=== PATIENT | female | born 1945 | race Caucasian/White ===

== ENCOUNTER 2018-04-20 22:05 | Inpatient (IN) | payer OTHER ==
[~2018-04-20] VITALS: Ht 165.1 cm; Wt 75.3 kg
[~2018-04-20 22:05] MED LIST: ALLOPURINOL 30300 M2 PO; OMEPRAZOLE20 M2 PO; OXYCODONE HCL 55 MG PO; PERCOCET PO; ROBAXIN 750 MG750 M1 PO
[2018-04-20 22:15] VITALS: BP 152/76
[2018-04-20] MEDS ORDERED: MACROBID 100 M100 M2 PO (22:21)
[2018-04-20] MEDS ORDERED: HYDROCODON-ACE1 EAC5 PO (22:22)
[2018-04-20 22:40] LABS: URINE BILIRUBIN NEGATIVE (Negative); URINE BLOOD NEGATIVE (Negative); URINE CLARITY SL CLOUDY; URINE COLOR DARK YELLOW; URINE GLUCOSE-RANDOM TRACE (Negative); URINE KETONES TRACE (Negative); URINE NITRITE-REFLEX NEGATIVE (Negative); URINE PROTEIN NEGATIVE (Negative); URINE SPECIFIC GRAVITY >= 1.030 (1.005-1.030)
[2018-04-20 22:46] LABS: URINE LEUKOCYTES-REFLEX 2+ (Negative)
[2018-04-20 22:47] LABS: ABSOLUTE EOSINOPHILS 0.2 thou/uL (0.0-0.7); ABSOLUTE LYMPHOCYTES 2.1 thou/uL (0.8-5.3); ABSOLUTE MONOCYTES 0.5 thou/uL (0.0-1.2); ABSOLUTE NEUTROPHILS 3.7 thou/uL (1.6-8.1); BASOPHILS 0.3 %; EOSINOPHILS 3.1 %; HEMATOCRIT 36.2 % (37.0-47.0); HEMOGLOBIN 12.1 gm/dL (12.0-15.0); LYMPHOCYTES 32.7 %; MCH 32.2 pg (26.0-34.0); MCHC 33.4 g/dL (28.0-37.0); MCV 96.3 fL (80.0-100.0); MONOCYTES 7.2 %; NUCLEATED RBCS 0 /100WBC; PLATELET COUNT* 185 thou/uL (150-400); POLYS 56.7 %; RBC 3.76 mil/uL (4.20-5.00); RDW-CV 13.8 % (10.5-14.5); WBC 6.4 thou/uL (4.0-11.0)
[2018-04-20 22:51] LABS: MUCUS 0-3 Light strn/LPF (None Seen); SQUAMOUS >10 Many /LPF (0-3)
[2018-04-20 22:52] LABS: CASTS None Seen /LPF (None Seen); URINE WBC-REFLEX >25 Many /HPF (0-5)
[2018-04-20 22:53] LABS: CRYSTALS None Seen /LPF (None Seen); URINE RBC None Seen /HPF (0-2)
[2018-04-20 22:54] LABS: WBC CLUMPS Few (None Seen)
[2018-04-20 23:08] LABS: ALBUMIN 3.9 g/dL (3.4-5.0); ALKALINE PHOSPHATASE 70 U/L (46-116); ANION GAP 7 mmol/L (7-16); BUN 13 mg/dL (7-18); CALCIUM 8.7 mg/dL (8.5-10.1); CHLORIDE 103 mmol/L (98-107); CO2 30 mmol/L (21-32); CREATININE 0.8 mg/dL (0.6-1.3); GLUCOSE 89 mg/dL (70-99); LIPASE 208 U/L (73-393); NT-PRO BRAIN NAT PEPTIDE 241 pg/mL (<300); POTASSIUM 3.5 mmol/L (3.5-5.1); SGOT 37 U/L (15-37); SGPT 31 U/L (30-65); SODIUM 140 mmol/L (136-145); TOTAL BILIRUBIN 0.5 mg/dL (<0.1-1.0); TOTAL PROTEIN 6.6 g/dL (6.4-8.2); TROPONIN-I LEVEL <0.06 ng/mL (<0.06)
[2018-04-21] VITALS (7 sets, daily range): BP systolic 105–137; BP diastolic 45–78
[2018-04-21] MEDS ORDERED: CEFUROXIME250 MG PO (13:37)
--- NOTE | 2018-04-21 13:46 | EKG ---
[place] [address] ELECTROCARDIOGRAM REPORT Name: KHADAR CARR Room: [address] ADM IN .R.#: [id number] Admission: 04/20/18 Attend Phys: Paolo Chung Discharge: Date of : 49 Report #: [id number] THIS REPORT FOR: //name// [facility] ED Test Date: 2018-04-20 Test Time: 22:13:09 Pat Name: KHADAR CARR Department: Room: [facility] Gender: F French Instructor: DEMETRI : 1945 Requested By: Melissa Garcia Order Number: [id number] MD: Kiran Menjivar Measurements Intervals [place] Rate: 54 P: 54 NM: 126 QRS: 48 QRSD: 83 T: 45 QT: 430 QTc: 408 Interpretive Statements Sinus rhythm Probable left atrial enlargement No previous ECG available for comparison Electronically Signed On 04-21-2018 13:45:57 [employer] by Kiran Menjivar [email or web address] <ELECTRONICALLY SIGNED> By: Kiran Menjivar MD, [facility] 04/21/18 1345 12 12 Kiran Menjivar MD, FAC /EPI
--- NOTE | 2018-04-21 13:57 | 2DMMODE ---
[place] [address] 2 D/M-MODE ECHOCARDIOGRAM Name: KHADAR CARR Room: [address] IN [facility]#: [id number] Admission: 04/20/18 Attend Phys: Rodriguez Harding Discharge: Date of : 49 Date of Service: 04/21/18 1357 Report #: [id number] THIS REPORT FOR: //name// APPROVED REPORT Study performed: 04/21/2018 11:17:52 EXAM: Comprehensive 2D, Doppler, and color-flow Echocardiogram Patient Location: In-Patient Room #: [facility] Status: routine BSA: 1.83 HR: 63 bpm BP: 128/54 mmHg Rhythm: NSR Other Information Study Quality: Good Indications Chest Pain 2D Dimensions IVSd: 8.86 (7-11mm) LVOT Diam: 19.84 (18-24mm) LVDd: 49.14 mm PWd: 8.31 (7-11mm) Ascending Ao: 30.93 (22-36mm) LVDs: 37.58 (25-40mm) Aortic Root: 29.56 mm Volumes Left Atrial Volume (Systole) LA ESV Index: 29.40 mL/m2 Aortic Valve AoV Peak Hakeem.: 1.17 m/s AO Peak Gr.: 5.51 mmHg LVOT Max P.99 mmHg AO Mean Gr.: 3.00 mmHg LVOT Mean P.35 mmHg LVOT Max V: 0.86 m/s AO V2 VTI: 28.58 cm LVOT Mean V: 0.53 m/s EVELINE (VTI): 2.34 cm2 LVOT V1 VTI: 21.64 cm AI Jack: 2.57 m/s2 AI PHT: 482.00 ms Mitral Valve E/A Ratio: 1.16 [place] [address] 2 D/M-MODE ECHOCARDIOGRAM Name: KHADAR CARR Room: [address] IN .R.#: [id number] Admission: 04/20/18 Attend Phys: Rodriguez Harding Discharge: Date of : 49 Date of Service: 04/21/18 1357 Report #: [id number] MV Decel. Time: 171.97 ms MV E Max Hakeem.: 0.75 m/s MV PHT: 49.87 ms MVA (PHT): 4.41 cm2 TDI E/Lateral E': 5.77 E/Medial E': 6.25 Medial E' Hakeem.: 0.12 m/s Lateral E' Hakeem.: 0.13 m/s Pulmonary Valve PV Peak Hakeem.: 0.76 m/s PV Peak Gr.: 2.33 mmHg Tricuspid Valve RAP Estimate: 5.00 mmHg TR Peak Gr.: 22.33 mmHg RVSP: 27.00 mmHg PA Pressure: 27.00 mmHg Left Ventricle The left ventricle is normal size. There is normal LV segmental wall motion. Borderline concentric left ventricular hypertrophy. Left ventricular systolic function is normal. The left ventricular ejection fraction is within the normal range. A false tendon is noted (normal variant). No left ventricle thrombus noted on this study. LVEF is 50-55%. Grade II - pseudonormal filling dynamics. Right Ventricle The right ventricle is normal size. The right ventricular systolic function is normal. Atria Left atrium is borderline dilated. The right atrium size is normal. Aortic Valve Aortic valve is calcified. Mild aortic regurgitation. There is no aortic valvular stenosis. Mitral Valve The mitral valve is normal in structure. Mild mitral regurgitation. No evidence of mitral valve stenosis. Tricuspid Valve The tricuspid valve is normal in structure. Trace tricuspid regurgitation. [place] [address] 2 D/M-MODE ECHOCARDIOGRAM Name: KHADAR CARR Room: [address] IN [facility]#: [id number] Admission: 04/20/18 Attend Phys: Rodriguez Harding Discharge: Date of : 49 Date of Service: 04/21/18 1357 Report #: [id number] Pulmonic Valve The pulmonary valve is normal in structure. There is no pulmonic valvular regurgitation. Great Vessels The aortic root is normal in size. IVC is normal in size and collapses >50% with inspiration. Pericardium There is no pericardial effusion. <Conclusion> LVEF is 50-55%. Borderline concentric left ventricular hypertrophy. There is normal LV segmental wall motion. Left atrium is borderline dilated. Aortic valve is calcified. There is no aortic valvular stenosis. Mild aortic regurgitation. Mild mitral regurgitation. Grade II - pseudonormal filling dynamics. <ELECTRONICALLY SIGNED> By: Kiran Menjivar MD, FACC 04/21/18 1357 1357 1357 Kiran Menjivar MD, FACC /INF
--- NOTE | 2018-04-21 14:32 | CARDNUC ---
[place] [address] CARDIAC NUCLEAR IMAGING REPORT Name: KHADAR CARR Room: [address] IN [facility]#: [id number] Admission: 04/20/18 Attend Phys: Rodriguez Harding Discharge: Date of : 49 Date of Service: 04/21/18 1431 Report #: [id number] THIS REPORT FOR: //name// APPROVED REPORT Imaging Protocol: Rest Tc-99m/Stress Tc-99m 1 day Study performed: 04/21/2018 09:12:00 Indication: Chest pain Patient Location: In-Patient Room #: 224 Stress Tech: Maria Dolores Francis Stress Nurse: Alexia Lau RN Ht: 5 ft 5 in Wt: 166 lbs BSA: 1.83 m2 BMI: 27.62 Medical History Medical History: none Medications: none Allergies: sulfa Cardiac Risk Factors: age Previous Cardiac Procedures: none Exercise History: Physically active Meds Held (24 hrs): none Resting Data Rest SPECT myocardial perfusion imaging was performed in supine position 30 minutes following the intravenous injection of 11.1 mCi of Tc-99m Sestamibi. Time of rest injection: 09:20 The images were gated to evaluate regional wall motion and calculate left ventricular ejection fraction. Administration Route: IV Administration Site: Right AC Pharmacologic Stress Pharmacologic stress test was performed by injecting Regadenoson 0.4 mg IV push over 10-15 seconds immediately followed by the intravenous injection of 34.6 mCi of Tc-99m Sestamibi. Time of stress injection: 10:30 Administration Route: IV Administration Site: Right AC Heart Rate at time of stress injection: 85 bpm. Gated Stress SPECT was performed 40 [place] [address] CARDIAC NUCLEAR IMAGING REPORT Name: KHADAR CARR Room: [address]#: [id number] Admission: 04/20/18 Attend Phys: Rodriguez Harding Discharge: Date of : 49 Date of Service: 04/21/18 1431 Report #: [id number] injection. The images were gated to evaluate regional wall motion and calculate left ventricular ejection fraction. Prone imaging was performed. Stress Test Details Stress Test: Pharmacologic stress testing performed using 0.4 mg of regadenoson per 5 mL given IV over 10 seconds. Reason for pharmacologic stress test: . HR Max Heart Rate (APMHR): 150 bpm Resting HR: 58 bpm Target HR (85% APMHR): 127 bpm Max HR Achieved: 85 bpm % of APMHR: 56 Recovery HR: 64 bpm HR response to stress: Normal HR response to stress BP Resting BP: 132/67 mmHg Max BP: 145/70 mmHg Recovery BP: 144/69 mmHg BP response to stress: Normal blood pressure response to stress. ECG Resting ECG: Sinus Rhythm Stress ECG: Sinus Rhythm ST Change: None Recovery ECG: Sinus Rhythm Recovery ST Change: None Clinical Reason for Termination: Completed protocol Stress Symptoms: None Exercise duration: 0 min sec Exercise capacity: 1 METs Nurse Comments unsteady gait Stress ECG Conclusion negative ecg Study Quality Study: Good Artifact: No artifact Lung Uptake: [place] [address] CARDIAC NUCLEAR IMAGING REPORT Name: KHADAR CARR Room: [address]#: [id number] Admission: 04/20/18 Attend Phys: Rodriguez Harding Discharge: Date of : 49 Date of Service: 04/21/18 1431 Report #: [id number] Study Data At rest, the left ventricular ejection fraction was 52%.. Post stress, the left ventricular ejection was 63%.. SSS: 4 SRS: 4 SDS: 0 Perfusion Review of rest data reveals normal perfusion, without perfusion defects.Imaging obtained following vasodilator stress demonstrate a similar, uniform uptake of tracer without defects. Prone imaging was normal. LVEDV is normal.No segental wall motion abnormality seen. Wall Motion normal all segments Nuclear Conclusion ECG Findings: negative for ischemia Clinical Findings: negative for ischemia Nuclear Findings: negative for ischemia Exercise Capacity: not assessed Left Ventricular Function: normal Risk Study: low Negative stress test for ischemia or infarct. Normal LV function. <Conclusion> negative ecg <ELECTRONICALLY SIGNED> By: Kiran Menjivar MD, FACC 04/21/18 143 143 30 Kiran Menjivar MD, FACC /INF
[2018-04-21] MEDS ORDERED: LEXAPRO20 MG PO (21:03)
[2018-04-22 04:00] VITALS: BP 119/53
[2018-04-22 08:35] VITALS: BP 147/66
[2018-04-22 11:30] VITALS: BP 147/66
[2018-04-22 12:35] VITALS: BP 148/70
== END 2018-04-22 12:57 | disposition home or self-care (01) | DRG 392 ==
LOC: M.ERS 22:05 → M.2W 23:42 → M.TBA-ER 23:42 → M.2W 04-21 00:02
PROVIDERS: Emergency Medicine; ADMIT Internal Medicine
DX: K21.9 Gastro-esophageal reflux disease without esophagitis (principal); N39.0 Urinary tract infection, site not specified; R01.1 Cardiac murmur, unspecified; M10.9 Gout, unspecified; F32.9 Major depressive disorder, single episode, unspecified; Z88.2 Allergy status to sulfonamides; Z90.710 Acquired absence of both cervix and uterus; Z95.828 Presence of other vascular implants and grafts; Z79.899 Other long term (current) drug therapy

== ENCOUNTER 2018-08-28 03:14 | Inpatient (IN) | payer OTHER ==
[~2018-08-28] VITALS: Ht 167.6 cm; Wt 68.5 kg
[~2018-08-28 03:14] MED LIST changes: +CEFUROXIME250 MG PO; +HYDROCODON-ACE1 EAC5 PO; +LEXAPRO20 MG PO; +MACROBID 100 M100 M2 PO
[2018-08-28 03:22] VITALS: BP 164/76
[2018-08-28] MEDS ORDERED: BUSPIRONE HCL10 MG PO (03:29)
[2018-08-28 03:42] LABS: ABSOLUTE EOSINOPHILS 0.3 thou/uL (0.0-0.7); ABSOLUTE LYMPHOCYTES 1.8 thou/uL (0.8-5.3); ABSOLUTE MONOCYTES 0.4 thou/uL (0.0-1.2); ABSOLUTE NEUTROPHILS 3.3 thou/uL (1.6-8.1); BASOPHILS 0.5 %; EOSINOPHILS 4.8 %; HEMATOCRIT 39.4 % (37.0-47.0); HEMOGLOBIN 12.8 gm/dL (12.0-15.0); LYMPHOCYTES 31.1 %; MCH 31.1 pg (26.0-34.0); MCHC 32.5 g/dL (28.0-37.0); MCV 95.8 fL (80.0-100.0); MONOCYTES 6.4 %; MPV 9.3 fl. (7.2-11.1); NUCLEATED RBCS 0 /100WBC; PLATELET COUNT* 222 thou/uL (150-400); POLYS 57.2 %; RBC 4.11 mil/uL (4.20-5.00); RDW-CV 14.1 % (10.5-14.5); WBC 5.7 thou/uL (4.0-11.0)
[2018-08-28 04:05] LABS: CALCIUM 9.3 mg/dL (8.5-10.1); CREATININE 0.7 mg/dL (0.6-1.3); POTASSIUM 3.8 mmol/L (3.5-5.1)
[2018-08-28 04:09] LABS: ALBUMIN 3.9 g/dL (3.4-5.0); TOTAL BILIRUBIN 0.5 mg/dL (<0.1-1.0); TOTAL PROTEIN 6.8 g/dL (6.4-8.2)
[2018-08-28 05:21] VITALS: BP 140/60
[2018-08-28 06:27] LABS: URINE BILIRUBIN NEGATIVE (Negative); URINE BLOOD 1+ (Negative); URINE CLARITY CLEAR; URINE COLOR YELLOW; URINE GLUCOSE-RANDOM NEGATIVE (Negative); URINE KETONES 1+ (Negative); URINE LEUKOCYTES-REFLEX NEGATIVE (Negative); URINE NITRITE-REFLEX NEGATIVE (Negative); URINE PROTEIN NEGATIVE (Negative); URINE UROBILINOGEN 0.2 E.U./dl (0.2-1.0)
[2018-08-28 06:38] LABS: BACTERIA-REFLEX 1-9 Few /HPF (None Seen); CASTS None Seen /LPF (None Seen); CRYSTALS None Seen /LPF (None Seen); SQUAMOUS 0-3 Few /LPF (0-3); URINE RBC 3-10 Few /HPF (0-2); URINE WBC-REFLEX 0-5 Rare /HPF (0-5)
--- NOTE | 2018-08-28 07:41 | NUR ---
PT RECIEVED FROM ED. ALERT AND ORIENTED X4. SAT MAINTAINED IN RA. CALL LIGHT WITHIN REACH AND BED IN LOW POSITION. HOURLY ROUNDING DONE FOR PT SAFETY.
[2018-08-28 08:02] VITALS: BP 123/59
[2018-08-28 12:09] VITALS: BP 128/54
--- NOTE | 2018-08-28 16:03 | NUR ---
ASSUMED CARE OF PT AROUND 0730 THIS AM. REFER TO ASSESSMENT. PT PROGRESSING TOWARDS GOALS THIS SHIFT. IVF INFUSING WITHOUT DIFFICULTY. ALL URINE STRAINED. SMALL STONES NOTED ON LAST VOID. NO ORDERS TO COLLECT OR SEND STONES TO LAB. ANTICIPATE PT TO HAVE KUB IN AM. NPO AFTER MIDNIGHT. PAIN MANAGED WITH PRN FENTANYL AND HYDROCODONE. PT TOLERATING REGULAR DIET THIS SHIFT. NO OTHER CONCERNS AT THIS TIME. CLWR. WCTM.
[2018-08-28 19:50] VITALS: BP 106/48
[2018-08-29 04:00] VITALS: BP 135/55
--- NOTE | 2018-08-29 05:14 | NUR ---
PT CARE ASSUMED AT 1930. SAT MAINTAINED IN RA. ALERT AND ORIENTED X4. CALL LIGHT WITHIN REACH AND BED IN LOW POSITION. C/O PAIN, MEDICATION GIVEN PER EMAR. HOURLY ROUNDING DONE FOR PT SAFETY.
[2018-08-29 05:47] LABS: CALCIUM 8.1 mg/dL (8.5-10.1); CREATININE 1.2 mg/dL (0.6-1.3); POTASSIUM 3.2 mmol/L (3.5-5.1)
[2018-08-29 06:10] LABS: CREATININE 1.2 mg/dL (0.6-1.3); MAGNESIUM 1.4 mg/dL (1.8-2.4); POTASSIUM 3.3 mmol/L (3.5-5.1)
[2018-08-29 08:00] VITALS: BP 151/73
--- NOTE | 2018-08-29 13:16 | NUR ---
Pt out of the room when CM went to assess, will f/u later
[2018-08-29 15:52] VITALS: BP 142/58
--- NOTE | 2018-08-29 18:06 | NUR ---
ASSUMED PT CARE AT 0730, AOX4, SBA, O2 SAT 90'S RA. PT MS. PT COMPLAINS OF CONSTANT FLANK PAIN. PT LUNGS SOUND CLEAR. ABDOMEN SOFT AND ROUND. PT FOR URINE STRAIN. PT HAD KUB XRAY. PT HAD CYSTOSCOPY, LEFT RETROGRADE PYELOGAM. PT HAS 2 IV, R AND L ARM. PT FOR ELECTROLYTE PROTOCOL. VSS, AM ASSESSMENT CHARTED. MEDS GIVEN PER MAR. HOURLY ROUNDING. CALL LIGHT WITHIN REACH. WILL CONTINUE TO MONITOR.
--- NOTE | 2018-08-29 19:04 | NUR ---
I HAVE REVIEWED AND AGREED WITH THE ASSESMENT AND NOTE OF NEMO Barnes RN ON 08/29/18
[2018-08-29 19:10] LABS: MAGNESIUM 1.6 mg/dL (1.8-2.4); POTASSIUM 3.7 mmol/L (3.5-5.1)
[2018-08-29 20:00] VITALS: BP 128/48
--- NOTE | 2018-08-29 21:23 | CON ---
[address] [address] CONSULTATION Name: KHADAR CARR Room: [address] IN .R.#: [id number] Admission: 08/28/18 Attend Phys: Amrita Camacho MD Discharge: Date of : 49 Report #: [id number] THIS REPORT FOR: //name// CC: Tika Camacho DATE OF SERVICE: 08/28/2018 REASON FOR CONSULTATION: Left flank pain and renal/ureteral calculi. CONSULTING PHYSICIAN: Dr. Camacho. HISTORY OF PRESENT ILLNESS: This is a 73-year-old female who denies prior stone history. She presented to the Emergency Department with severe left flank pain and nausea. Pain was unremitting. She was admitted to the hospital for pain control and further evaluation. Urology was consulted. She denies dysuria, hematuria, or difficulty voiding. Denies fever. Reports intermittent left-sided flank pain radiating to the left lower quadrant. PAST MEDICAL HISTORY: Significant for gout. PAST SURGICAL HISTORY: Significant for hysterectomy, cholecystectomy, wrist surgery, back surgery and gastric bypass. She also reports a history of recurrent UTIs. She sees a urologist regarding this, but is not sure who that is. FAMILY HISTORY: She does not know of any family history of renal stones or renal insufficiency. SOCIAL HISTORY: Denies use of tobacco. Drinks alcohol occasionally. MEDICATIONS: List is reviewed. She has been started on Rocephin empirically given her UTI history. She has also been started on Flomax for medical expulsive therapy. ALLERGIES: INCLUDE SULFA DRUGS. REVIEW OF SYSTEMS: As per the history of present illness. No headache, chest pain, shortness of breath, cough, palpitations or vomiting. PHYSICAL EXAMINATION: VITAL SIGNS: Temperature 36.7, pulse 70, respirations 16, blood pressure 128/54. GENERAL: This is a 73-year-old female in no acute distress. She is awake, alert and answers questions appropriately. HEENT: Normocephalic, atraumatic. Extra[place] [address] CONSULTATION Name: KHADAR CARR Room: [address] IN [facility]#: [id number] Admission: 08/28/18 Attend Phys: Amrita Camacho MD Discharge: Date of : 49 Report #: [id number] Oropharynx is clear. NECK: Supple. No JVD. LUNGS: Respiratory effort and excursion are normal. CARDIAC: Rhythm is regular. Radial pulses are palpable. ABDOMEN: Soft and nondistended. She has tenderness in the left lower quadrant and flank as well as the left costovertebral angle. No guarding or rebound. Spine and right costovertebral angle are nontender. EXTREMITIES: Warm. Moves all extremities well. No peripheral edema. LABORATORY DATA: Include hemoglobin 12.8, white count 5.7, platelet count 222,000. Sodium 148, potassium 3.8, chloride 108, CO2 30, BUN 11, creatinine 0.7, glucose 104. Urinalysis revealed 3-10 red cells and 0-5 white cells. I have ordered a urine culture. Noncontrast CT of the abdomen and pelvis revealed multiple left renal calculi as well as left proximal and distal ureteral stones. There may also be a stone passed into the bladder. IMPRESSION: Left renal proximal and distal ureteral stones, flank pain, history of gastric bypass and recurrent UTIs. Options for management were discussed with the patient at length including inpatient versus outpatient medical expulsive therapy, inpatient versus outpatient cystoscopy, left retrograde pyelogram, ureteroscopic stone manipulation and stent placement, outpatient ESWL. Risks and benefits of these approaches were discussed. We also discussed stone prevention measures, especially given her history of gastric bypass. She would like to try a conservative approach. She is on intravenous hydration and oral Flomax. Receiving IV Rocephin empirically as well. We will plan to check repeat lab as well as a KUB tomorrow. Strain all urine for stones and await results of urine culture. <ELECTRONICALLY SIGNED> By: Jake Simms MD 08/29/18 2123 1358 [id number] carlos Simms MD /nt
--- NOTE | 2018-08-29 21:33 | OP ---
[address] [address] OPERATIVE REPORT Name: KHADAR CARR Room: [address] IN .R.#: [id number] Admission: 08/28/18 Attend Phys: Amrita Camacho MD Discharge: Date of : 49 Report #: [id number] THIS REPORT FOR: //name// CC: iTka Camacho DATE OF SERVICE: 08/29/2018 PREOPERATIVE DIAGNOSES: Left ureteral and renal calculi, flank pain, urinary tract infections. POSTOPERATIVE DIAGNOSES: Left ureteral and renal calculi, flank pain, urinary tract infections. PROCEDURE: Cystoscopy, left retrograde pyelogram, left ureteral stent placement, ureteral stone manipulation. SURGEON: Jake Simms M.D. ANESTHESIA: General. ESTIMATED BLOOD LOSS: None. DRAINS: 6 x 26 left ureteral stent. SPECIMENS: Stones. Urine from left renal pelvis for culture and sensitivity. COMPLICATIONS: None. INDICATIONS: This is a 73-year-old female admitted with intractable left flank pain and imaging showing multiple left ureteral and renal calculi. She also has a history of recurrent UTIs and is on empiric IV antibiotics. Alternatives for management were discussed and recommended she undergo cystoscopy with left retrograde pyelogram, left ureteral stent placement with deferral of definitive management of her stone burden until she completes a course of antibiotics. Reasoning for this was explained. Risks of procedure were explained including, but not limited to, bleeding, infection, anesthesia, cardiopulmonary and vascular events, injuries to urethra, bladder, ureter, possible inability to bypass obstruction, need for further stone procedures, possible development of strictures, stent discomfort. We also discussed the need for timely followup regarding any stent left in place and the reasoning for that. She voices clear understanding and wants to proceed. DESCRIPTION OF PROCEDURE: The patient was on perioperative IV antibiotics. After induction of general anesthesia, she was positioned, prepped and draped in the lithotomy position. Timeout procedure was performed[place] [address] OPERATIVE REPORT Name: KHADAR CARR Room: [address] IN ..#: [id number] Admission: 08/28/18 Attend Phys: Amrita Camacho MD Discharge: Date of : 49 Report #: [id number] performed. The urethra and bladder were normal on systematic examination. There were no mucosal lesions. Ureteral orifices were orthotopic. A sensor wire was advanced per the left ureteral orifice. Using this, coag sealed passage of a 5-Chinese ureteral catheter was performed into the distal ureter. The wire was then advanced into the renal pelvis with fluoroscopic guidance, past the calcific densities in the ureter. The ureteral catheter was then advanced over the wire and into the region of the renal pelvis. Urine was aspirated and sent for culture given the lack of available culture data from this admission. The wire was then withdrawn. The ureteral catheter was withdrawn into the distal ureter and a retrograde pyelogram was performed revealing multiple ureteral filling defects and renal pelvic filling defects. The wire was advanced again to the renal pelvis with fluoroscopic guidance. The catheter was removed. This manipulation resulted in passage of several stones into the bladder. These were irrigated out and sent for analysis. A 6 x 26 left ureteral stent was then advanced into the left renal pelvis with good position confirmed in the renal pelvis fluoroscopically and in the bladder visually. Brisk drainage of fluid was noted from the stent. The bladder was emptied and the scope was removed. Lidocaine jelly was given per urethra. The patient tolerated the procedure well and was taken to the recovery room in stable condition. Plan will be for her to follow up as an outpatient regarding definitive stone management after a course of antibiotics. <ELECTRONICALLY SIGNED> By: Jake Simms MD 08/29/18 2133 1303 [id number] carlos Simms MD /nt
[2018-08-30] VITALS: BP 154/49
[2018-08-30 05:36] LABS: CALCIUM 9.1 mg/dL (8.5-10.1); CREATININE 0.7 mg/dL (0.6-1.3); POTASSIUM 3.9 mmol/L (3.5-5.1)
[2018-08-30] MEDS ORDERED: LEVSIN0.125 MG SUBLING (07:50)
[2018-08-30] MEDS ORDERED: CEFUROXIME250 MG PO (07:51)
[2018-08-30] MEDS ORDERED: KEFLEX500 M1 PO (07:57)
[2018-08-30 09:32] VITALS: BP 122/56
[2018-08-30 10:15] VITALS: BP 122/56
--- NOTE | 2018-08-30 10:23 | NUR ---
ASSUMED CARE OF PT AROUND 0730 THIS AM. REFER TO ASSESSMENT. VSS. DC ORDERS OBTAINED FROM HOSPITALIST. UROLOGISTS CONTACTED. OK TO DC, WILL CALL PRESCRIPTION IN TO PT'S PHARMACY FOR PYRIDIUM. F/U APPT MADE FOR UROLOGIST. PT NEEDS KUB PRIOR TO APPOINTMENT. NO OTHER CONCERNS AT THIS TIME. CLWR. WCTM.
--- NOTE | 2018-08-30 10:41 | NUR ---
DC ORDERS GIVEN TO PT AT THIS TIME. PT VOICES UNDERSTANDING.
[2018-09-02 10:09] LABS: STONE CA OXALATE MONOHYDRATE 90 % (()); STONE CALCIUM PHOSPHATE 10 % (()); STONE COLOR Tan (()); STONE COMMENT Note: (())
== END 2018-08-30 11:15 | disposition home or self-care (01) | DRG 660 ==
LOC: M.ERS 03:14 → M.2W 04:48 → M.TBA-ER 04:48 → M.2W 05:29
PROVIDERS: Family Medicine; Internal Medicine; Urology; ADMIT Family Medicine
PROC: BT1F1ZZ Fluoroscopy of Left Kidney, Ureter and Bladder using Low Osmolar Contrast (ICD-10-PCS; principal; 2018-08-29)
PROC: 0T778DZ Dilation of Left Ureter with Intraluminal Device, Via Natural or Artificial Opening Endoscopic (ICD-10-PCS; principal; 2018-08-29)
DX: N20.2 Calculus of kidney with calculus of ureter (principal); N39.0 Urinary tract infection, site not specified; E87.0 Hyperosmolality and hypernatremia; E86.0 Dehydration; F32.9 Major depressive disorder, single episode, unspecified; M10.9 Gout, unspecified; N28.9 Disorder of kidney and ureter, unspecified; Z98.84 Bariatric surgery status; Z90.710 Acquired absence of both cervix and uterus; Z90.49 Acquired absence of other specified parts of digestive tract; Z88.2 Allergy status to sulfonamides